=== PATIENT | male | born 1980 | race Native Hawaiian/Other Pacific Islander ===

== ENCOUNTER 2021-01-09 20:45 | Emergency (ER) | payer OTHER ==
[~2021-01-09] VITALS: Ht 165.1 cm; Wt 147.4 kg
[2021-01-09 20:45] VITALS: BP 153/69; TEMP 98
[~2021-01-09 20:45] MED LIST: ALPR0.5T24 PO; AMBIEN5 MG PO; AMINOFEN500 MG PO; AMIT25TA22 PO; ARIPIPRAZOLE5 MG PO; BUPR150T PO; CALCIUM CARBONATE; CHOLECALCIFEROL; DIVA500T2 PO; ESCI20TA OR; ESCITALOPRAM20 MG PO; FIBER625 MG PO; HYDR5TAB9 PO; LEVO-T50 MCG PO; LEVO0.0529 PO; LEVO0.1T6 PO; LITH300C3 PO; LORA2INJ21 INJ; MELOXICAM15 MG PO; METF500T PO; MILK OF MAGNESI1 SU1 PO; MILK OF MAGNESI1 SUS PO; NAPROSYN500 MG PO; NORCO 10/325***1 TAB PO; NUCYNTA100 MG PO; OXYGEN NAS; PANTPAK PO; PAROXETINE40 MG PO; PROVERA10 MG PO; RANITIDINE 150150 MG PO; RISP1TAB PO; TRAZ50TA36 PO; TYLENOL PO; TYLENOL325 MG; TYLENOL325 MG OR; ZYBAN150 MG PO
[2021-01-09 21:20] LABS: PLATELET COUNT 76 K/uL (142-355)
[2021-01-09 21:30] LABS: POTASSIUM 4.1 mmol/L (3.6-5.2)
[2021-01-09] MEDS ORDERED: ARIPIPRAZOLE20 MG PO (23:40)
[2021-01-09] MEDS ORDERED: BENZTROPINE0.5 MG PO (23:41)
[2021-01-09] MEDS ORDERED: CELECOXIB200 MG PO (23:42)
[2021-01-09] MEDS ORDERED: CYCLOBENZAPRINE5 MG PO (23:45)
[2021-01-09] MEDS ORDERED: DULOXETINE HCL30 MG PO (23:49)
[2021-01-09] MEDS ORDERED: DULOXETINE HYDR60 MG PO (23:50)
[2021-01-09] MEDS ORDERED: LIDOCAINE MAXIMUM4 % EX (23:55)
[2021-01-09] MEDS ORDERED: LIDOCAINE45 EX (23:59)
[2021-01-10] MEDS ORDERED: LIDOCAINE45 EX
[2021-01-10] MEDS ORDERED: FUROSEMIDE20 MG PO (00:03)
[2021-01-10] MEDS ORDERED: GABA300C2 PO (00:05)
[2021-01-10] MEDS ORDERED: HYDROXYZINE HYD25 MG PO (00:06)
[2021-01-10] MEDS ORDERED: ZESTRIL40 MG PO (00:08)
[2021-01-10] MEDS ORDERED: MEDROXYPR AC5 MG PO (00:10)
[2021-01-10] MEDS ORDERED: MELATONIN1 TA2 PO (00:14)
[2021-01-10] MEDS ORDERED: METFORMIN HYDR500 M2 PO (00:17)
[2021-01-10] MEDS ORDERED: OLANZAPINE10 M2 PO (00:18)
[2021-01-10] MEDS ORDERED: OMEPRAZOLE DR20 MG PO (00:20)
[2021-01-10] MEDS ORDERED: OXCARBAZEPIN300 MG PO (00:21)
[2021-01-10] MEDS ORDERED: POTASSIUM CHLO20 ME1 PO (00:23)
[2021-01-10] MEDS ORDERED: BUPROPION HYDR150 M2 PO (00:32)
== END 2021-01-09 21:46 | disposition still patient (30) ==
LOC: ED 20:45
PROVIDERS: Hospitalist
DX: F25.8 Other schizoaffective disorders (principal); F31.89 Other bipolar disorder; Z11.52 Encounter for screening for COVID-19; Z04.6 Encounter for general psychiatric examination, requested by authority
CPT/HCPCS: 36415; 80053; 81000; 85027; 87635; 93005; 99283; U0003

== ENCOUNTER 2021-04-27 23:43 | Emergency (ER) | payer OTHER ==
[~2021-04-27] VITALS: Ht 165.1 cm; Wt 137.4 kg
[~2021-04-27 23:43] MED LIST changes: +ARIPIPRAZOLE10 MG PO; +ARIPIPRAZOLE20 MG PO; +BENZTROPINE0.5 MG PO; +BUPROPION HYDR150 M2 PO; +CELECOXIB200 MG PO; +CYCLOBENZAPRINE5 MG PO; +DULO30CA PO; +DULOXETINE HCL30 MG PO; +DULOXETINE HYDR60 MG PO; +FUROSEMIDE20 MG PO; +GABA300C2 PO; +HYDROXYZINE HYD25 MG PO; +LIDOCAINE MAXIMUM4 % EX; +LIDOCAINE45 EX; +MEDROXYPR AC10 MG PO; +MEDROXYPR AC5 MG PO; +MELATONIN1 TA2 PO; +METFORMIN HYDR500 M2 PO; +OLANZAPINE10 M2 PO; +OLANZAPINE5 MG PO; +OMEPRAZOLE DR20 MG PO; +OXCARBAZEPIN300 MG PO; +POTASSIUM CHLO20 ME1 PO; +ZESTRIL40 MG PO
[2021-04-28 00:03] LABS: PLATELET COUNT 91 K/uL (142-355)
[2021-04-28 00:18] LABS: POTASSIUM 4.6 mmol/L (3.6-5.2)
[2021-04-28 00:40] VITALS: BP 163/73; TEMP 98
[2021-04-28] MEDS ORDERED: TRAZODONE HYDR100 MG PO (08:53)
[2021-04-28] MEDS ORDERED: ACID CONTROL20 MG PO (08:57)
[2021-04-28] MEDS ORDERED: PEPCID20 MG PO (08:58)
[2021-04-28] MEDS ORDERED: HALOPERIDOL2 MG PO (09:00)
[2021-04-28] MEDS ORDERED: DULO60CA2 PO (09:01)
[2021-04-28] MEDS ORDERED: ABILIFY MYCITE20 MG PO (09:02)
[2021-04-28] MEDS ORDERED: BUPROPION HYDRO75 MG PO (09:04)
== END 2021-04-28 00:40 | disposition still patient (30) ==
LOC: ED 23:43
PROVIDERS: Emergency Medicine
DX: F25.8 Other schizoaffective disorders (principal); F31.89 Other bipolar disorder; R45.1 Restlessness and agitation; I10 Essential (primary) hypertension; E11.9 Type 2 diabetes mellitus without complications; G47.33 Obstructive sleep apnea (adult) (pediatric); B19.20 Unspecified viral hepatitis C without hepatic coma; Z11.52 Encounter for screening for COVID-19; Z04.6 Encounter for general psychiatric examination, requested by authority
CPT/HCPCS: 36415; 80053; 81000; 85027; 87635; 93005; 99283; U0003

== ENCOUNTER 2021-07-27 19:55 | Emergency (ER) | payer OTHER ==
[~2021-07-27] VITALS: Ht 165.1 cm; Wt 139.7 kg
[~2021-07-27 19:55] MED LIST changes: +ABILIFY MYCITE20 MG PO; +ACID CONTROL20 MG PO; +BUPROPION HYDRO75 MG PO; +CHOL100034 PO; +DULO60CA2 PO; +HALOPERIDOL2 MG PO; +MAGN400T4 PO; +OLAN2.5T2 PO; +PEPCID20 MG PO; +TIZA4TAB5 PO; +TRAM50TA PO; +TRAZODONE HYDR100 MG PO
[2021-07-27 20:49] LABS: POTASSIUM 4.6 mmol/L (3.6-5.2)
[2021-07-27 21:07] LABS: PLATELET COUNT 91 K/uL (142-355)
[2021-07-27 21:40] VITALS: BP 129/69; TEMP 98.2
[2021-07-28] MEDS ORDERED: BIO FREEZE TOP (02:33)
[2021-07-28] MEDS ORDERED: GERI-LANTA PO (02:35)
[2021-07-28] MEDS ORDERED: ARTIFICIAL TEAR1.4 % OTIC (02:40)
[2021-07-28] MEDS ORDERED: DAILY PROBIOTI250 MG PO (02:41)
[2021-07-28] MEDS ORDERED: LORA2INJ21 IM (02:48)
== END 2021-07-27 21:40 | disposition still patient (30) ==
LOC: ED 19:55
PROVIDERS: Emergency Medicine
DX: R46.89 Other symptoms and signs involving appearance and behavior (principal); F20.89 Other schizophrenia; Z11.52 Encounter for screening for COVID-19; Z04.6 Encounter for general psychiatric examination, requested by authority
CPT/HCPCS: 36415; 80053; 85027; 87635; 93005; 99283; U0003

== ENCOUNTER 2021-09-05 18:00 | Emergency (ER) | payer OTHER ==
[~2021-09-05] VITALS: Ht 165.1 cm; Wt 128.8 kg
[~2021-09-05 18:00] MED LIST changes: +ARTIFICIAL TEAR1.4 % OTIC; +Artificial Tears 0.2 OPTH; +BIO FREEZE TOP; +DAILY PROBIOTI250 MG PO; +DOCU100C10 PO; +DULCOLAX 5MG TAB PO; +FAMOTIDINE20 MG PO; +FURO20TA67 PO; +GERI-LANTA PO; +INSUINJ20 SC; +LISI20TA11 PO; +LORA2INJ21 IM; +POTA20TA4 PO; +SIME80CH32 PO
[2021-09-05 18:44] LABS: PLATELET COUNT 112 K/uL (142-355)
[2021-09-05 18:53] LABS: POTASSIUM 4.1 mmol/L (3.6-5.2)
[2021-09-06] MEDS ORDERED: BETAMETH DIP EX (04:14)
== END 2021-09-05 19:17 | disposition still patient (30) ==
LOC: ED 18:00
PROVIDERS: Emergency Medicine
DX: F25.8 Other schizoaffective disorders (principal); R45.1 Restlessness and agitation; Z11.52 Encounter for screening for COVID-19; Z04.6 Encounter for general psychiatric examination, requested by authority
CPT/HCPCS: 36415; 80053; 85027; 87635; 99283; U0003

== ENCOUNTER 2021-12-07 20:16 | Emergency (ER) | payer OTHER ==
[~2021-12-07] VITALS: Ht 165.1 cm; Wt 149.7 kg
[~2021-12-07 20:16] MED LIST changes: +ARTIFICIAL TEAR1.4 % OPTH; -ARTIFICIAL TEAR1.4 % OTIC; +BETAMETH DIP EX
[2021-12-07 21:00] LABS: PLATELET COUNT 85 K/uL (142-355)
[2021-12-07 21:04] LABS: POTASSIUM 4.5 mmol/L (3.6-5.2)
[2021-12-07 22:07] VITALS: BP 138/72; TEMP 98.6
[2021-12-08] MEDS ORDERED: CHOLESTYRAMINE PO (09:00)
[2021-12-08] MEDS ORDERED: DOK100 M1 PO (09:01)
[2021-12-08] MEDS ORDERED: CULTURELL3 PO (09:02)
[2021-12-08] MEDS ORDERED: FAMO20TA4 PO (09:04)
[2021-12-08] MEDS ORDERED: FURO20TA67 PO (09:04)
[2021-12-08] MEDS ORDERED: INSU300I SC (09:08)
[2021-12-08] MEDS ORDERED: EUTHYROX100 MCG PO (09:09)
[2021-12-08] MEDS ORDERED: CLARITIN10 M1 PO (09:10)
[2021-12-08] MEDS ORDERED: MEDR10TA4 PO (09:11)
[2021-12-08] MEDS ORDERED: OLANZAPINE 15 MG PO (09:13)
[2021-12-08] MEDS ORDERED: OXCARBAZEPIN300 MG PO (09:14)
[2021-12-08] MEDS ORDERED: VITAMIN D1000 UNI1 PO (09:17)
[2021-12-08] MEDS ORDERED: [UNRECOGNIZED DRUG - CODE] PO ×2 (09:18→09:19)
[2021-12-08] MEDS ORDERED: [UNRECOGNIZED DRUG - OTHER] TOP (09:23)
[2021-12-08] MEDS ORDERED: GAS RELIEF80 MG PO (09:24)
[2021-12-08] MEDS ORDERED: IPRATROPIUM/ INH (09:25)
[2021-12-08] MEDS ORDERED: TIZA4TAB5 PO (09:27)
== END 2021-12-07 22:07 | disposition still patient (30) ==
LOC: ED 20:16
PROVIDERS: Emergency Medicine
DX: F20.89 Other schizophrenia (principal); R45.1 Restlessness and agitation; R07.89 Other chest pain; I25.10 Atherosclerotic heart disease of native coronary artery without angina pectoris; I10 Essential (primary) hypertension; E11.9 Type 2 diabetes mellitus without complications; Z79.4 Long term (current) use of insulin; Z79.84 Long term (current) use of oral hypoglycemic drugs; I87.8 Other specified disorders of veins; Z11.52 Encounter for screening for COVID-19; Z04.6 Encounter for general psychiatric examination, requested by authority; F17.210 Nicotine dependence, cigarettes, uncomplicated
CPT/HCPCS: 80053; 81000; 85027; 87635; 93005; 99283; U0003

== ENCOUNTER 2022-08-01 15:43 | Emergency (ER) | payer OTHER ==
[~2022-08-01] VITALS: Ht 317.5 cm; Wt 147.9 kg
[~2022-08-01 15:43] MED LIST changes: +ACET-206 PO; +BLOOMIS59 PO; +CHOL4POW11 PO; +CHOLESTYRAMINE PO; +CLARITIN10 M1 PO; +CULTURELL3 PO; +DOK100 M1 PO; +EUTHYROX100 MCG PO; +FAMO20TA4 PO; +GAS RELIEF80 MG PO; +INSU300I SC; +IPRATROPIUM/ INH; +LACTTAB PO; +LORA10TA3 PO; +MEDR10TA4 PO; +OLANZAPINE 15 MG PO; +OLANZAPINE10 MG PO; +VITAMIN D1000 UNI1 PO; +[UNRECOGNIZED DRUG - CODE] PO; +[UNRECOGNIZED DRUG - OTHER] TOP
[2022-08-01 15:53] VITALS: BP 137/65; TEMP 98.4
[2022-08-01 16:25] LABS: PLATELET COUNT 92 K/uL (142-355)
[2022-08-01 16:34] LABS: POTASSIUM 4.5 mmol/L (3.6-5.2)
[2022-08-01] MEDS ORDERED: BUDESONIDE0.5 MG/2 M INH (20:01)
[2022-08-01] MEDS ORDERED: [UNRECOGNIZED DRUG - OTHER] PO (20:06)
[2022-08-01] MEDS ORDERED: FLUC150T PO (20:11)
[2022-08-01] MEDS ORDERED: FURO40TA93 PO (20:12)
[2022-08-01] MEDS ORDERED: GABA400C2 PO (20:13)
[2022-08-01] MEDS ORDERED: INSUINJP SC (20:15)
[2022-08-01] MEDS ORDERED: LEVO0.1224 PO (20:16)
[2022-08-01] MEDS ORDERED: REFRESH PLUS0.51 IO (20:39)
[2022-08-01] MEDS ORDERED: D3 20002000 UNIT PO (20:42)
[2022-08-01] MEDS ORDERED: ALBUTEROL108 MCG/AC INH (20:50)
== END 2022-08-01 17:34 | disposition still patient (30) ==
LOC: ED 15:43
PROVIDERS: Internal Medicine
DX: R45.1 Restlessness and agitation (principal); R45.6 Violent behavior; Z02.79 Encounter for issue of other medical certificate
CPT/HCPCS: 80053; 85027; 87635; 93005; 99283; U0003